=== PATIENT | female | born 1955 | race Caucasian/White ===

== ENCOUNTER 2017-06-08 13:56 | Inpatient (IN) ==
--- NOTE | 2017-06-08 14:11 | Emergency Department Note ---
Disposition Clinical Impression: GI bleed, Anemia Post-op bleeding Qualifiers: Surgical complication system/body Area: subcutaneous tissue Procedure type: non -dermatologic Qualified Code(s): L76.22 - Postprocedural hemorrhage of skin and subcutaneous tissue following other procedure Disposition: Admitted As Inpatient Condition: Fair Time of Disposition: 15:17 GI Bleed HPI - General Chief complaint: ED GI Bleed Stated complaint: 'bleeding from surgical site" Time Seen by Provider: 06/08/17 13:59 Source: patient, EMS Mode of arrival: EMS Limitations: no limitations Nursing Notes Reviewed: Yes Vital Signs Reviewed: Yes - History of Present Illness HPI Narrative: Patient is a 61-year-old female with past medical history of hypothyroidism, diabetes, high blood pressure, mechanical heart valve. She presents today due to rectal bleeding. She had surgery for hemorrhoids on May [address] Ortega. She says that she has had mild intermittent bleeding since the surgery but "nothing that worried her. "For the past 24 hours, after a bowel movement yesterday, she began having large amounts of bright red bleeding. She said that she was having to change a pad about every 15 minutes with the bleeding first started. The bleeding continued until today, and she was feeling lightheaded and dizzy and went to [facility]. While there , they gave her fluids and perform some basic blood work. They did not transfuse her. Currently, the patient denies any shortness of breath, lightheadedness, dizziness. She admits to some mild discomfort in the rectal region and does admit to continued rectal bleeding. She was on Lovenox shots to bridge her while she was restarted on Coumadin. She has been taking Coumadin 2.5 mg daily and was was to take her last Lovenox shot today, but she did not because of her symptoms. Her hemoglobin was 9.9 at outside facility, BMP not concerning, INR 2.4 at outside facility. - Related Data Home Medications Medication Instructions Recorded Confirmed Aspirin [Lo-Dose Aspirin EC] 81 mg PO DAILY 05/29/17 06/08/17 Atorvastatin Calcium [Lipitor] 20 mg PO DAILY 05/29/17 06/08/17 Calcium Carbonate [Calcium] 600 mg PO DAILY 05/29/17 06/08/17 HYDROcodone/Acet 7.5/325 mg [[place] 1 tab PO Q6H PRN 05/29/17 06/08/17 7.5-325 mg] Insulin DETEMIR [Levemir Flextouch] 32 unit SQ BID 05/29/17 06/08/17 Insulin LISPRO [Humalog Kwikpen 16 unit SQ TID 05/29/17 06/08/17 U-100] Levothyroxine [Synthroid] 50 mcg PO QAM 05/29/17 06/08/17 Metformin HCl [Glucophage] 1,000 mg PO BID 05/29/17 06/08/17 Oxygen 2 l IH HS 05/29/17 06/08/17 Paroxetine [Paxil] 30 mg PO DAILY 05/29/17 06/08/17 Sotalol [Betapace] 80 mg PO BID 05/29/17 06/08/17 Warfarin Sodium 2.5 mg PO MOTUWETHFRSA 05/29/17 06/08/17 Warfarin [Coumadin] 5 mg PO COLE 05/29/17 06/08/17 Metoprolol Tartrate [Lopressor] 50 mg PO BID 06/08/17 06/08/17 Multivitamin [Multi-Day Vitamins] 1 each PO DAILY 06/08/17 06/08/17 Previous Rx's Medication Instructions Recorded Docusate [Colace] 100 mg PO BID #30 capsule 05/29/17 Lidocaine Jelly 2% 1 appl MM Q6HR PRN #1 jel..ml. 05/29/17 OxyCODONE/APAP 5/325 [Percocet 1 each PO Q4HR PRN #40 tablet 05/29/17 5/325 MG] Allergies Allergy/AdvReac Type Severity Reaction Status Date / Time No Known Allergies Allergy Verified 05/29/17 11:42 All systems ED: reviewed and negative except as stated. Constitutional: Denies: fever Cardiovascular: Denies: chest pain Respiratory: Denies: dyspnea Gastrointestinal: Denies: abdominal pain, nausea, vomiting, diarrhea Neurological: Denies: headache, weakness, numbness, paresthesias Endocrine: Reports: fatigue Hematological/Lymphatic: Reports: easy bleeding Past Medical History - Past Medical History Attestation: Yes The following information was validated with the patient. Source: patient Medical history: Reports: diabetes, kidney stones, other Psychiatric history: Reports: no psych history - Social History Smoking Status: Never smoker Smokeless Tobacco Status: No Alcohol use: Reports: none Drug use: Reports: none Physical Exam - General Limitations: no limitations General appearance: in no apparent distress, other (Pale, overall generalized weakness) - Head Head exam: atraumatic, normocephalic, normal inspection - Eye Eye exam: Present: PERRL, EOMI, other (Pale conjunctiva) - ENT ENT exam: normal exam, normal oropharynx, mucous membranes moist - Neck Neck exam: Present: normal inspection, full ROM, trachea midline - Chest Chest inspection: Present: normal inspection, symmetric chest wall rise - Respiratory Respiratory exam: Present: normal lung sounds bilaterally - Cardiovascular Cardiovascular exam: Present: regular rate, normal rhythm, normal heart sounds - Abdominal Exam Abdominal exam: Present: soft, Non-Tender. Absent: tenderness, distention, guarding, rebound, rigidity - Rectal Exam Tobacco Conditioner present during exam: Yes Rectal exam: Present: hemorrhoids, other ([id number] amount of dried blood around the anus but no active bleeding at this time.) - Extremities Exam Extremities exam: Present: normal inspection, full ROM. Absent: pedal edema - Neurological Exam Neurological exam: Present: alert, oriented X3 - Psychiatric Psychiatric exam: Present: normal affect, normal mood - Skin Skin exam: Present: warm, dry, intact, normal color Course Course Narrative: Currently, vitals are stable. Blood pressure 107 over 70s. Her hemoglobin was 9.9 at outside facility, BMP not concerning, INR 2.4 at outside facility. Received FFP at outside facility and fluids. Physical exam shows Mild-to- moderate amount of dried blood around the anus but no active bleeding at this time. We will obtain repeat H&H, type and screen. Discussed possible blood transfusion with the patient and she was agreeable with it was necessary. After labs return, we will contact surgery for admission for further care. 15:14 repeat hemoglobin 7.0. This is down from 9.9 at outside facility. Patient was given FFP 1 at outside facility along with fluids. Blood pressure currently stable. Consent was signed for 2 units of packed RBC. Mary Corona with surgery assessed the patient at bedside, she contacted Dr. Johnson who is accepted the patient to his service. Patient will be admitted for further care. Per surgery, patient can have clear liquids. Vital Signs Temperature 99.2 F 06/08/17 14:00 Pulse Rate 89 06/08/17 14:00 Respiratory Rate 16 06/08/17 14:00 Blood Pressure 106/55 06/08/17 14:00 O2 Sat by Pulse Oximetry 98 06/08/17 14:00 Temperature 98.8 F 06/08/17 16:12 Pulse Rate 96 06/08/17 16:31 Respiratory Rate 16 06/08/17 16:31 Blood Pressure 119/58 06/08/17 16:31 O2 Sat by Pulse Oximetry 98 06/08/17 16:31 Oxygen Delivery Oxygen Delivery Room Air GI Bleed - [facility] Narrative Medical decision making narrative: repeat hemoglobin 7.0. This is down from 9.9 at outside facility. Patient was given FFP 1 at outside facility along with fluids. Blood pressure currently stable. Consent was signed for 2 units of packed RBC. Mary Corona with surgery assessed the patient at bedside, she contacted Dr. Johnson who is accepted the patient to his service. Patient will be admitted for further care. Per surgery, patient can have clear liquids. - Medical Records Medical records reviewed: Yes I reviewed the patient's medical records. - Lab Data Lab results reviewed: Yes I reviewed the patient's lab results. Result diagrams: 06/08/17 14:13 Lab Results 06/08/17 06/08/17 Range/Units 14:13 14:13 Hgb 7.0 L D (11.5-15.4) g/dL Hct 21.8 L (35.3-44.9) % Blood Type A POSITIVE Antibody Screen NEGATIVE Crossmatch See Detail S.B.A.Urban. - S.B.A.Abran Situation: Demographics, MOA Background: Presenting Complaint, Relevant PMH, Meds, & Allergies Assessment: Vital Signs, Course and respsone to treatment, Exam Concerns, Patient/Family Expectation, Pertinant Lab Results, Outstanding Labs Recommendation: Barrier(s) to disposition, Recommendation based on pending studies, treatments, or consults S.B.A.Abran Report Given to: Mary TiradoBJasonAMark Repor Time: 15:17 Attestation Statement - Attestation Attestation: I examined this patient and my medical decision-making was reviewed with the Resident Physician. I agree with the documented findings, disposition and treatment plan as described except to the extent set forth below. The patient's emergency department with a chief complaint of rectal bleeding. Patient status post hemorrhoid surgery on the . She has had intermittent bleeding since the surgery. Last night she states she started bleeding heavily. Was going to a feminine pad every 15 minutes. Went to [place] today and was transferred here at the request of her surgeon. Exam shows her pale but in no distress. Examination of her rectum reveals no active bleeding. Plan. Repeat H&H. Type and cross. Repeat hemoglobin 7. We will transfuse 2 units packed red cells. Admitted to surgery. 30 minutes of critical care exclusive of separately billable procedures.
[2017-06-08 14:20] LABS: Hematocrit 21.8 % (35.3-44.9)
[2017-06-08] MEDS ORDERED: Ondansetron 4 MG/2 ML VIAL IVP PRN (15:07)
--- NOTE | 2017-06-08 15:10 | General Surg History&Physical ---
<Mary Albarado - Last Filed: 06/08/17 15:10> Date of Encounter: 06/08/17 Time of Encounter: 14:30 Assessment and Plan (1) Post-operative hemorrhage Current Visit: Yes Status: Acute The assessment and plan as outlined above was discussed with the patient and/or family members who expressed understanding and agreement. All questions were answered. Admit to telemetry unit Monitor hgb/hct Transfuse 2 units PRBC now FFP given for INR-2.4 (Mechanical heart valve) Repeat INR at [address] Johnson will make a recommendation for heparin gtt Supportive care No urgent surgical intervention at this time Clear liquid diet Qualifiers: Surgical complication system/body Area: subcutaneous tissue Procedure type : non-dermatologic Qualified Code(s): L76.22 - Postprocedural hemorrhage of skin and subcutaneous tissue following other procedure (2) S/P hemorrhoidectomy Current Visit: Yes Status: Acute The assessment and plan as outlined above was discussed with the patient and/or family members who expressed understanding and agreement. All questions were answered. Intermittent bleeding noted Support with blood products- 2 units PRBC ordered (3) Acute blood loss anemia Current Visit: Yes Status: Acute The assessment and plan as outlined above was discussed with the patient and/or family members who expressed understanding and agreement. All questions were answered. Monitor Hgb/Hct Transfuse 2 units PRBC now Repeat CBC in the am (4) Mechanical heart valve present Current Visit: Yes Status: Acute The assessment and plan as outlined above was discussed with the patient and/or family members who expressed understanding and agreement. All questions were answered. INR- 2.4 FFP given at [facility] Repeat INR at 1800- Dr. Johnson to follow and make recommendations for heparin gtt (5) Diabetes mellitus Current Visit: Yes Status: Acute The assessment and plan as outlined above was discussed with the patient and/or family members who expressed understanding and agreement. All questions were answered. Clear liquid diet SSI every ACHS- medium sliding scale insulin Qualifiers: Diabetes mellitus type: type 2 Diabetes mellitus complication status: with unspecified complications Diabetes mellitus parts counterman insulin use: with parts counterman use Qualified Code(s): E11.8 - Type 2 diabetes mellitus with unspecified complications; Z79.4 - detention (current) use of insulin (6) Hypothyroidism Current Visit: Yes Status: Acute The assessment and plan as outlined above was discussed with the patient and/or family members who expressed understanding and agreement. All questions were answered. Continue synthroid Qualifiers: Hypothyroidism type: unspecified Qualified Code(s): E03.9 - Hypothyroidism , unspecified History of Present Illness Chief complaint: Rectal bleeding HPI: Ms. Babcock is a 61 year old female who was transferred from [facility] with complaints of rectal bleeding. She is s/p exam under anesthesia under anesthesia and hemorroidectomy with Dr. Ortega on 05/29/17. She reports that she has had intemittent rectal bleeding since her surgery. She did report to the ED on 06/04/17 and her Hgb was 10.4 at that time. She was discharged to home and instructed to follow-up with the surgery office. She states that her bleeding was slowly improving until last night. She reports passing a small, hard stool after dinner. She has been taking stool softners as needed and did take 2 yesterday. She states that after her bowel movement, she began to pass large amounts of bright red blood and clots from her bottom. She states that she changed her pad every 15-20 minutes through the night. When she got up this morning, she reports that she felt light headed and dizzy. She did not pass out but said that she felt that she could have. Her blood pressure was systolic of 93 at home. She reported to [facility] for further evaluation. Her hgb was noted to be 9.9 on initial presentation in the ED. Her SBP was 60-80's. She was given IV fluids and FFP and transferred to [place] for further management. She is currently on Coumadin therapy and a lovenox bridge for her mechanical heart valve. Her INR was 2.4 this morning. She was still taking lovenox injections but states that she was scheduled in the Coumadin clinic to likely stop the shots today. She states that she did pass a large bloody bowel movement just before being transferred to [place]. Her Hgb on arrival to [place] was found to be 7.0. We will admit the patient for furter work-up and management Denies any abdominal discomfort. She does admit to rectal discomfort which is related to her surgery. Denies any shortness of breath of chest pains. Denies any changes in appetite. Denies any difficulty with urination. Past Med Surg Social Fam HX - Past Medical History Source: patient, old records reviewed Medical history: atrial fibrillation, diabetes (Type 2), hyperlipidemia, hypertension, kidney stones, thyroid disease (hypothyroidism), other (diabetic neuropathy, aortic valve replacement) Psychiatric history: no psych history - Past Surgical History Surgical History: cholecystectomy, heart valve replacement (aortic valve- mechanical valve (2010)), other (tubal ligation, diagnostic laparoscopy, colonoscopy 2014, kidney stone removal, heart cath 2010) - Social History Smoking Status: Never smoker Smokeless Tobacco Status: No Alcohol use: none Drug use: none Current living situation: Home - Independent Activity Level: Independent ambulation - Family History Father Living Status: Cause of : Heart Disease Hx Family Cardiac Disorders: Yes (CHF) Mother Living Status: Cause of : Heart Disease Hx Family Cardiac Disorders: Yes (CHF) Medications and Allergies Aspirin [Lo-Dose Aspirin EC] 81 mg PO DAILY 05/29/17 [History] Atorvastatin Calcium [Lipitor] 20 mg PO DAILY 05/29/17 [History] Calcium Carbonate [Calcium] 600 mg PO DAILY 05/29/17 [History] Docusate [Colace] 100 mg PO BID #30 capsule 05/29/17 [Rx] HYDROcodone/Acet 7.5/325 mg [[place] 7.5-325 mg] 1 tab PO Q6H PRN 05/29/17 [ History] Insulin DETEMIR [Levemir Flextouch] 32 unit SQ BID 05/29/17 [History] Insulin LISPRO [Humalog Kwikpen U-100] 16 unit SQ TID 05/29/17 [History] Levothyroxine [Synthroid] 50 mcg PO QAM 05/29/17 [History] Lidocaine Jelly 2% 1 appl MM Q6HR PRN #1 jel..ml. 05/29/17 [Rx] Metformin HCl [Glucophage] 1,000 mg PO BID 05/29/17 [History] OxyCODONE/APAP 5/325 [Percocet 5/325 MG] 1 each PO Q4HR PRN #40 tablet 05/29/17 [Rx] Oxygen 2 l IH HS 05/29/17 [History] Paroxetine [Paxil] 30 mg PO DAILY 05/29/17 [History] Sotalol [Betapace] 80 mg PO BID 05/29/17 [History] Warfarin Sodium 2.5 mg PO MOTUWETHFRSA 05/29/17 [History] Warfarin [Coumadin] 5 mg PO COLE 05/29/17 [History] Metoprolol Tartrate [Lopressor] 50 mg PO BID 06/08/17 [History] Multivitamin [Multi-Day Vitamins] 1 each PO DAILY 06/08/17 [History] Allergies No Known Allergies Allergy (Verified 05/29/17 11:42) Review of Systems All systems PM: reviewed and no additional remarkable complaints except as stated (in the HPI) All systems PM: A 10-system review of systems was performed and is negative for pertinent findings except as documented above in the HPI. General Surgery Exam Initial Vital Signs Temp Pulse Resp BP Pulse Ox 99.2 F 89 16 106/55 98 06/08/17 14:00 06/08/17 14:00 06/08/17 14:00 06/08/17 14:00 06/08/17 14:00 - General physical appearance well developed, well nourished, no distress, no pain, other (pale and weak) - Eyes normal ocular movement, pale - ENT normal mucosa, atraumatic, normocephalic - Neck trachea midline - Respiratory normal respiratory effort, clear to auscultation - Cardiovascular Cardiovascular exam: Present: RRR - Abdomen Abdomen general surgery: Present: bowel sounds present, soft, non tender - Rectum Rectum: Present: other (Blood clot noted in depends, Perirectal wound is clean with no evidence of current/ongoing bleeding) - Integumentary Integumentary general surgery: Present: warm and dry - Neurologic Present: CN 2-12 grossly intact - Psychiatric Psychiatric general surgery: Present: appropriate, oriented to person, oriented to place, oriented to time, speech is normal, memory intact Results - Labs 06/08/17 14:13 Abnormal lab results Hgb 7.0 g/dL (11.5-15.4) L D 06/08/17 14:13 Hct 21.8 % (35.3-44.9) L 06/08/17 14:13 All other labs normal. <Meng Johnson - Last Filed: 06/08/17 16:46> Date of Encounter: 06/08/17 History of Present Illness HPI: Ms. Babcock is a 61 year old female Review of Systems All systems PM: A 10-system review of systems was performed and is negative for pertinent findings except as documented above in the HPI. General Surgery Exam Initial Vital Signs Temp Pulse Resp BP Pulse Ox 99.2 F 89 16 106/55 98 06/08/17 14:00 06/08/17 14:00 06/08/17 14:00 06/08/17 14:00 06/08/17 14:00 Results - Labs 06/08/17 14:13 Abnormal lab results Hgb 7.0 g/dL (11.5-15.4) L D 06/08/17 14:13 Hct 21.8 % (35.3-44.9) L 06/08/17 14:13 All other labs normal. - Attending Attestation I evaluated the patient in the presence of the PURE PAK MACHINE OPERATOR and reviewed the assessment and evaluation. Noted clot on the depends and small amount of oozing from the anal canal. Given her noted INR of 2.4 (she did have FFP transfusion at the outside hospital today) and the fact that her current HgB is 7.0 I do think it would be most appropriate to bring her to the OR for a rectal exam under anesthesia and possible oversew of the hemorrhoidial bleed. Discussed with the patient and family and they agree to the above plan.
[2017-06-08] MEDS ORDERED: 0.9 % Sodium Chloride 1,000 ML IVC SCH (15:15)
[2017-06-08] MEDS ORDERED: D5% in Water 1,000 ML IVC PRN (15:19)
[2017-06-08] MEDS ORDERED: Dextrose Gel 15 GM PO PRN ×2 (15:19)
[2017-06-08] MEDS ORDERED: *HR* Dextrose 50 % in Water (Syg) 50 ML SYRINGE IVP PRN (15:19)
[2017-06-08] MEDS ORDERED: 0.9 % Sodium Chloride 250 ML ONE (15:49)
--- NOTE | 2017-06-08 16:28 | Anesthesia Evaluation PreOp ---
Date of Encounter: 06/08/17 Time of Encounter: 16:26 - Past History Planned Operation: Rectal EUA Cardiac History: Hyperlipidemia, Arrhythmia (H/O A-Fib), Cardiac Surgery ( mechanical AVR in 2010) Pulmonary History: KRIS Dx (on O2 2 L/NC qhs) REFRIGERATOR REPAIR TECHNICIAN History: Denies Any Significant HX Other Medical History: Diabetes Type II, Thyroid Anesthesia History: No Prior Anesthetic Complications, Past Anesthesia Alcohol Use: none Drug use: none Medications and Allergies Aspirin [Lo-Dose Aspirin EC] 81 mg PO DAILY 05/29/17 [History] Atorvastatin Calcium [Lipitor] 20 mg PO DAILY 05/29/17 [History] Calcium Carbonate [Calcium] 600 mg PO DAILY 05/29/17 [History] Docusate [Colace] 100 mg PO BID #30 capsule 05/29/17 [Rx] HYDROcodone/Acet 7.5/325 mg [[place] 7.5-325 mg] 1 tab PO Q6H PRN 05/29/17 [ History] Insulin DETEMIR [Levemir Flextouch] 32 unit SQ BID 05/29/17 [History] Insulin LISPRO [Humalog Kwikpen U-100] 16 unit SQ TID 05/29/17 [History] Levothyroxine [Synthroid] 50 mcg PO QAM 05/29/17 [History] Lidocaine Jelly 2% 1 appl MM Q6HR PRN #1 jel..ml. 05/29/17 [Rx] Metformin HCl [Glucophage] 1,000 mg PO BID 05/29/17 [History] OxyCODONE/APAP 5/325 [Percocet 5/325 MG] 1 each PO Q4HR PRN #40 tablet 05/29/17 [Rx] Oxygen 2 l IH HS 05/29/17 [History] Paroxetine [Paxil] 30 mg PO DAILY 05/29/17 [History] Sotalol [Betapace] 80 mg PO BID 05/29/17 [History] Warfarin Sodium 2.5 mg PO MOTUWETHFRSA 05/29/17 [History] Warfarin [Coumadin] 5 mg PO COLE 05/29/17 [History] Metoprolol Tartrate [Lopressor] 50 mg PO BID 06/08/17 [History] Multivitamin [Multi-Day Vitamins] 1 each PO DAILY 06/08/17 [History] Allergies No Known Allergies Allergy (Verified 05/29/17 11:42) - Meds/Allergy Pre-op Review Medications Reviewed: Yes Allergies Reviewed: Yes Beta Blockers on Current Med List: Yes If Beta Blockers taken, Date/Time (Last Dose taken): 06/07/2017 at 2000 Anesthesia Results - Labs 06/08/17 14:13 Anesthesia Exam Vital Signs/O2 Sat/Glucose, Most Recent Temp Pulse Resp BP Pulse Ox 98.2 F 95 16 120/60 98 06/08/17 16:07 06/08/17 16:07 06/08/17 16:07 06/08/17 16:07 06/08/17 14:00 Blood Glucose* 182 Height: 5'4'' Weight: 162 lbs NPO (# of Hours): 8 Pain Scale: 0 Pain Scale Used: Numeric (1 - 10) - HEENT Pupil (Motor): EOMI Mallampati: III Teeth: Normal Oral Opening: Greater than 3 - REFRIGERATOR REPAIR TECHNICIAN LOC: Oriented REFRIGERATOR REPAIR TECHNICIAN Motor: Normal RUE, Normal LUE, Normal RLE, Normal LLE, Normal Face REFRIGERATOR REPAIR TECHNICIAN Sensory: Normal: RUE, LUE, Face, Deficit: RLE, LLE - Cardiac Rhythm: Regular Murmur: None - Pulmonary Breath Sounds: bilateral Clear Respiratory Effort: Symmetrical Anesthesia Assess/Plan ASA Score: 3 Modified Mcallister Scale for Level of Consciousness: Cooperative, oriented, and tranquil Anesthetic Plan: General Monitoring Plan: Standard Monitors Recovery Plan: PACU
[2017-06-08] MEDS ORDERED: Insulin LISPRO 300 UNITS/3 ML VIAL SQ SCH ×2 (16:30→21:00)
[2017-06-08] MEDS ORDERED: *HR* FentaNYL (PF) 100 MCG/2 ML VIAL ONE (16:38)
[2017-06-08] MEDS ORDERED: *HR* Propofol 200 MG/20 ML VIAL IVP ONE (16:38)
[2017-06-08] MEDS ORDERED: Lidocaine -MPF 2% 2 ML VIAL ONE (16:39)
[2017-06-08] MEDS ORDERED: Lidocaine Jelly 2% 30 ML JEL..ML. ONE (16:44)
[2017-06-08] MEDS ORDERED: Lidocaine/EPI 1:200k 1% PF 10 ML VIAL ONE (16:44)
[2017-06-08] MEDS ORDERED: CefOXitin 2,000 MG VIAL IVPB ONE (17:12)
--- NOTE | 2017-06-08 18:02 | Operative Note ---
Date of procedure: 06/08/17 Pre-op diagnosis: Rectal bleeding s/p hemorrhoidectomy Post-op diagnosis: same Procedure: 1. Rectal exam under anesthesia. 2. Ligation of hemorrhoidal bleed. Anesthesia: GETA Surgeon: Meng Johnson Estimated blood loss (cc): 10 Condition: stable Disposition: PACU Procedure in Detail: Date of surgery: 06/08/17 After properly identifying the patient, the patient was brought to the operating room and placed in the supine position. After proper IV sedation was achieved followed by general endotracheal intubation, the patient was placed in the jackknife prone position and the perianal tissue was prepped and draped in normal fashion. A timeout was performed noting the patient's name and type of procedure to be performed. 1% lidocaine with epinephrine was used to perform a pudendal block. The perianal tissue was also infiltrated 1% lidocaine in a kwabena fashion. Examination demonstrated 2 areas previous hemorrhoidectomy; one at the 9 o'clock position and the other at the 3 to 4 o'clock position of the anus. Rectal retractors in place within the anal canal which demonstrated evidence of a clot within the rectum which was expelled. There was some mild oozing noted at the 9:00 hemorrhoidal site which appeared to have dehisced. Some slight oozing which was hemostatically controlled with Bovie cauterization. This area was then oversewed with a interrupted 3-0 Monocryl suture. Visualization also showed an area of oozing at the 3 to 4 o'clock position of the previous hemorrhoidectomy site which is also mildly dehisced. This oozing was significantly less however this was also hemostatically controlled with Bovie cauterization. This was additionally oversewed with a interrupted 3-0 Monocryl suture. Reinspection for 5-10 minutes was performed which demonstrated no evidence of active bleeding within the anal canal or rectum. Gelfoam impregnated with 2% lidocaine jelly was placed within the anal canal and an ABD was then placed over the opening. Needle, sponge, and instrument counts were correct 2 and the patient was placed in a supine position on the stretcher. The patient was aroused from IV sedation, extubated in the operating room without complication, and transported to the recovery room stable condition.
[2017-06-08] MEDS ORDERED: 0.9 % Sodium Chloride 500 ML ONE (18:31)
[2017-06-08] MEDS ORDERED: Ringers Solution, Lactated 1,000 ML ONE (18:41)
[2017-06-08 18:48] LABS: INR 2.3
--- NOTE | 2017-06-08 19:12 | Anesthesia Evaluation Post Op ---
Date of Encounter: 06/08/17 Time of Encounter: 19:10 - Vital Signs Vital Signs: Vital Signs/O2 Sat/Glucose, Most Current Temp Pulse Resp BP Pulse Ox 06/08/17 19:02 97.8 F 88 16 103/60 100 06/08/17 18:52 89 16 108/55 100 06/08/17 18:42 90 24 98/57 98 06/08/17 18:39 98.0 F 90 16 99/54 100 06/08/17 18:32 98.0 F 92 16 99/54 99 06/08/17 18:22 92 16 105/56 100 06/08/17 18:12 80 16 83/44 97 06/08/17 18:02 99.2 F 78 16 79/40 95 06/08/17 16:51 16 119/58 06/08/17 16:31 96 16 119/58 98 06/08/17 16:12 98.8 F 95 16 119/58 06/08/17 16:07 98.2 F 95 16 120/60 06/08/17 16:00 98.2 F 96 16 91/46 06/08/17 15:54 98.7 F 95 14 109/58 - Lungs Lungs: Clear Ascult./Percussion - Airway Airway: Non-obstructed - Cardiovascular Regular Rate - Mental Status Mental Status: Alert & Oriented, Answers Appropriately - Pain Pain Scale: 1 - Nausea Vomiting Nausea Vomiting: Not Present - Hydration Hydration: Ice chips - Discharge PostOp Status: Transfer Patient to floor
[2017-06-08] MEDS ORDERED: *HR* Morphine 2 MG/ML SYRINGE IVP ONE (23:51)
[2017-06-09 05:09] LABS: Basophils % 0.1 %; Eosinophils # 0.1 K/mcL (0.0-0.6); Eosinophils % 0.7 %; Hematocrit 22.2 % (35.3-44.9); Hemoglobin 7.6 g/dL (11.5-15.4); Immature Granulocytes % 0.4 % (0-4); Lymphocytes # 2.9 K/mcL (0.6-4.6); Lymphocytes % 41.6 %; Mean Corpuscular HGB Conc 34.2 g/dL (31.6-35.5); Mean Corpuscular Hemoglobin 30.4 pg (28.0-33.3); Mean Corpuscular Volume 88.8 fL (83.0-100.0); Mean Platelet Volume 12.6 fL (9.4-12.4); Monocytes # 0.6 K/mcL (0.0-1.3); Monocytes % 8.9 %; Neutrophils # 3.4 K/mcL (1.6-8.9); Platelet Count 103 K/mcL (140-400); Red Cell Distribution Width 16.4 % (11.5-14.5); Segmented Neutrophils % 48.3 %
[2017-06-09 05:14] LABS: INR 2.2; Prothrombin Time 24.7 Seconds (9.4-12.1)
[2017-06-09 05:16] LABS: Activated Partial Thrombo Time 28.3 Seconds (26.0-36.0)
[2017-06-09 05:24] LABS: BUN/Creatinine Ratio 21 (6-26); Blood Urea Nitrogen 15 mg/dL (7-20); Calcium 7.7 mg/dL (8.6-10.8); Carbon Dioxide 25 mEq/L (19-29); Chloride 109 mEq/L (98-109); Glucose 181 mg/dL (70-99); Osmolality,Calculated 297 (280-300); Potassium 3.9 mEq/L (3.5-4.5); Sodium 141 mEq/L (136-145); eGFR For African Americans > 60 (> 60); eGFR For Non-African Americans > 60 (> 60)
[2017-06-09] MEDS ORDERED: D5% in Water 1,000 ML IVC PRN (06:42)
[2017-06-09] MEDS ORDERED: Ondansetron 4 MG/2 ML VIAL IVP PRN (06:42)
[2017-06-09] MEDS ORDERED: 0.9 % Sodium Chloride 1,000 ML IVC SCH (06:42)
[2017-06-09] MEDS ORDERED: *HR* Dextrose 50 % in Water (Syg) 50 ML SYRINGE IVP PRN (06:42)
[2017-06-09] MEDS ORDERED: *HR* Morphine 2 MG/ML SYRINGE IVP PRN (06:42)
[2017-06-09] MEDS ORDERED: Dextrose Gel 15 GM PO PRN ×2 (06:42)
[2017-06-09 07:39] LABS: INR 2.2; Prothrombin Time 24.2 Seconds (9.4-12.1)
--- NOTE | 2017-06-09 09:10 | General Surgery Progress Note ---
Date of Encounter: 06/10/17 Time of Encounter: 09:08 - Assessment and Plan (1) Post-operative hemorrhage Current Visit: Yes Status: Acute Will continue to monitor H/H. Follow BMs. Keep on clears today. Will heplock IVF. Additionally, Hgb is 7.6 and will transfuse an additional 2U PRBC. Qualifiers: Surgical complication system/body Area: subcutaneous tissue Procedure type : non-dermatologic Qualified Code(s): L76.22 - Postprocedural hemorrhage of skin and subcutaneous tissue following other procedure (2) Mechanical heart valve present Current Visit: Yes Status: Acute INR 2.2. Will hold on lovenox this morning and restart coumadin this evening ( patient takes coumadin 2.5mg daily except for Sunday, which is 5mg). (3) Diabetes mellitus Current Visit: Yes Status: Acute On sliding scale. Continue to monitor. Qualifiers: Diabetes mellitus type: type 2 Diabetes mellitus complication status: with unspecified complications Diabetes mellitus jail insulin use: with jail use Qualified Code(s): E11.8 - Type 2 diabetes mellitus with unspecified complications; Z79.4 - retirement (current) use of insulin Subjective Patient reports: other (Noted BMs since the procedure last night. Report dark blood clot/BM this am. Patient denies the feeling/pressure of needing to have BMs compared to her presentation in the ER last night.) Objective Vital Signs - Last 8 Hours Temp Pulse Resp BP Pulse Ox 06/09/17 08:04 98.2 F 80 17 128/85 96 06/09/17 05:31 98.7 F 80 18 102/63 95 Intake and Output 06/08/17 06/09/17 06/09/17 23:59 07:59 15:59 Intake Total 600 / 600 Output Total Balance 580 / 580 Intake: Blood Product 600 / 600 Rbcs Leuko Poor As-1 300 / 300 Unit [id number] Rbcs Leuko Poor As-3 Ph 300 / 300 Unit [id number] Output: Estimated Blood Loss Other: Stool Size Moderate Moderate Stool Consistency soft soft Stool Color Dark Red Blood Dark Red Blood # Voids 1 # Bowel Movements 2 1 Weight 76.7 kg 76.9 kg Blood Glucose* 200 237 Patient Weight 06/09/17 23:59 Weight 76.9 kg - General physical appearance well nourished, no distress, other (Less paleness noted.) - Additional Exam Perianal exam shows stool around the orifice. No active oozing noted. Noted redish appearing stool around orifice. - Labs 06/10/17 03:40 06/10/17 03:40 Diabetes panel 06/09/17 Range/Units 04:50 Sodium 141 (136-145) mEq/L Potassium 3.9 (3.5-4.5) mEq/L Chloride 109 (98-109) mEq/L Carbon Dioxide 25 (19-29) mEq/L BUN 15 (7-20) mg/dL Creatinine 0.72 (0.57-1.11) mg/dL Glucose 181 H (70-99) mg/dL Calcium 7.7 L (8.6-10.8) mg/dL Calcium panel 06/09/17 Range/Units 04:50 Calcium 7.7 L (8.6-10.8) mg/dL Pituitary panel 06/09/17 Range/Units 04:50 Sodium 141 (136-145) mEq/L Potassium 3.9 (3.5-4.5) mEq/L Chloride 109 (98-109) mEq/L Carbon Dioxide 25 (19-29) mEq/L BUN 15 (7-20) mg/dL Creatinine 0.72 (0.57-1.11) mg/dL Glucose 181 H (70-99) mg/dL Calcium 7.7 L (8.6-10.8) mg/dL Adrenal panel 06/09/17 Range/Units 04:50 Sodium 141 (136-145) mEq/L Potassium 3.9 (3.5-4.5) mEq/L Chloride 109 (98-109) mEq/L Carbon Dioxide 25 (19-29) mEq/L BUN 15 (7-20) mg/dL Creatinine 0.72 (0.57-1.11) mg/dL Glucose 181 H (70-99) mg/dL Calcium 7.7 L (8.6-10.8) mg/dL - VTE Reasons for not Prescribing Prophylaxis: Not indicated-Anticoagulated or INR therapeutic Consult Discharge Plan - Plan Referrals: NO,PCP [Primary Care Provider] -
[2017-06-09] MEDS ORDERED: *HR* Warfarin 2.5 MG TABLET PO ONE ×2 (09:13→18:00)
[2017-06-09] MEDS: Insulin LISPRO 300 UNITS/3 ML VIAL SQ SCH ×3 (10:39→17:57)
[2017-06-09] MEDS ORDERED: 0.9 % Sodium Chloride 500 ML ONE ×2 (11:29→17:32)
[2017-06-09] MEDS: *HR* OxyCODONE/APAP 10/325 TABLET PO PRN ×2 (11:46→18:01)
[2017-06-09] MEDS ORDERED: Insulin LISPRO 300 UNITS/3 ML VIAL SQ SCH (21:00)
[2017-06-10 04:23] LABS: Basophils % 0.6 %; Eosinophils # 0.1 K/mcL (0.0-0.6); Eosinophils % 1.5 %; Hematocrit 28.2 % (35.3-44.9); Hemoglobin 9.4 g/dL (11.5-15.4); Immature Granulocytes % 0.6 % (0-4); Lymphocytes # 2.8 K/mcL (0.6-4.6); Lymphocytes % 41.3 %; Mean Corpuscular HGB Conc 33.3 g/dL (31.6-35.5); Mean Corpuscular Hemoglobin 29.5 pg (28.0-33.3); Mean Corpuscular Volume 88.4 fL (83.0-100.0); Mean Platelet Volume 12.4 fL (9.4-12.4); Monocytes # 0.6 K/mcL (0.0-1.3); Monocytes % 8.5 %; Neutrophils # 3.2 K/mcL (1.6-8.9); Platelet Count 105 K/mcL (140-400); Red Blood Count 3.19 M/mcL (3.82-4.97); Red Cell Distribution Width 15.9 % (11.5-14.5); Segmented Neutrophils % 47.5 %
[2017-06-10 04:26] LABS: Prothrombin Time 21.7 Seconds (9.4-12.1)
[2017-06-10 04:29] LABS: Activated Partial Thrombo Time 27.6 Seconds (26.0-36.0)
[2017-06-10 04:40] LABS: BUN/Creatinine Ratio 14 (6-26); Blood Urea Nitrogen 9 mg/dL (7-20); Calcium 7.6 mg/dL (8.6-10.8); Carbon Dioxide 26 mEq/L (19-29); Chloride 110 mEq/L (98-109); Glucose 166 mg/dL (70-99); Osmolality,Calculated 294 (280-300); Potassium 3.4 mEq/L (3.5-4.5); Sodium 141 mEq/L (136-145); eGFR For African Americans > 60 (> 60); eGFR For Non-African Americans > 60 (> 60)
[2017-06-10] MEDS: Insulin LISPRO 300 UNITS/3 ML VIAL SQ SCH ×2 (07:49→12:31)
[2017-06-10] MEDS ORDERED: *HR* Enoxaparin 40 MG/0.4 ML SYRINGE SQ ONE (08:03)
--- NOTE | 2017-06-10 09:32 | Discharge Summary ---
<Jeremiah Davidson - Last Filed: 06/10/17 11:27> Date of Encounter: 06/10/17 Time of Encounter: 09:30 - Discharge Diagnosis (1) Post-operative hemorrhage Priority: Primary Status: Resolved Comments: Patient tolerated her regular diet for breakfast. Hgb up to 9.4 from 7.6. Qualifiers: Surgical complication system/body Area: subcutaneous tissue Procedure type : non-dermatologic Qualified Code(s): L76.22 - Postprocedural hemorrhage of skin and subcutaneous tissue following other procedure (2) Mechanical heart valve present Priority: Primary Status: Chronic Comments: INR 2.0 today. Resume Coumadin last night with skipping her dose yesterday. Discussed plan with patient to continue taking her Lovenox injections as well as resuming her home dose of Coumadin. She will call her Coumadin clinic tomorrow to set up an appointment on Sunday to reevaluate INR and if she needs to still be on Lovenox. (3) Diabetes mellitus Priority: Secondary Status: Acute Qualifiers: Diabetes mellitus type: type 2 Diabetes mellitus complication status: with unspecified complications Diabetes mellitus long term care social worker insulin use: with long term care social worker use Qualified Code(s): E11.8 - Type 2 diabetes mellitus with unspecified complications; Z79.4 - penitentiary (current) use of insulin - Discharge Medications Prescriptions: OxyCODONE/APAP 10/325 [Percocet 10/325 MG] 1 each PO Q6HR PRN #26 tab PRN Reason: Moderate Pain Home Medications: Aspirin [Lo-Dose Aspirin EC] 81 mg PO DAILY 05/29/17 [History] Atorvastatin Calcium [Lipitor] 20 mg PO DAILY 05/29/17 [History] Calcium Carbonate [Calcium] 600 mg PO DAILY 05/29/17 [History] Docusate [Colace] 100 mg PO BID #30 capsule 05/29/17 [Rx] Insulin DETEMIR [Levemir Flextouch] 32 unit SQ BID 05/29/17 [History] Insulin LISPRO [Humalog Kwikpen U-100] 16 unit SQ TID 05/29/17 [History] Levothyroxine [Synthroid] 50 mcg PO QAM 05/29/17 [History] Lidocaine Jelly 2% 1 appl MM Q6HR PRN #1 jel..ml. 05/29/17 [Rx] Metformin HCl [Glucophage] 1,000 mg PO BID 05/29/17 [History] Oxygen 2 l IH HS 05/29/17 [History] Paroxetine [Paxil] 30 mg PO DAILY 05/29/17 [History] Sotalol [Betapace] 80 mg PO BID 05/29/17 [History] Warfarin Sodium 2.5 mg PO [id number] 05/29/17 [History] Warfarin [Coumadin] 5 mg PO COLE 05/29/17 [History] Metoprolol Tartrate [Lopressor] 50 mg PO BID 06/08/17 [History] Multivitamin [Multi-Day Vitamins] 1 each PO DAILY 06/08/17 [History] OxyCODONE/APAP 10/325 [Percocet 10/325 MG] 1 each PO Q6HR PRN #26 tab 06/10/17 [ Rx] Allergies/Adverse Reactions: Allergies No Known Allergies Allergy (Verified 05/29/17 11:42) General Surgery Exam Initial Vital Signs Temp Pulse Resp BP Pulse Ox 99.2 F 89 16 106/55 98 06/08/17 14:00 06/08/17 14:00 06/08/17 14:00 06/08/17 14:00 06/08/17 14:00 - General physical appearance well developed, well nourished, no distress - Eyes normal ocular movement - ENT atraumatic, normocephalic - Neck trachea midline - Respiratory normal expansion, normal respiratory effort, clear to auscultation - Cardiovascular Cardiovascular exam: Present: RRR - Abdomen Abdomen general surgery: Present: bowel sounds present, soft, non tender - Rectum Rectum: Present: no bleeding - Integumentary Integumentary general surgery: Present: warm and dry - Psychiatric Psychiatric general surgery: Present: appropriate, oriented to person, oriented to place, oriented to time, speech is normal, memory intact Date of admission: 06/08/17 15:11 Primary care physician: PCP NO Discharging clinician: Meng Johnson Anticipated date of discharge: 06/10/17 - Patient Status Disposition: Home, Self-Care Condition: Fair Overall status at discharge: patient is back to baseline - Discharge Instructions Instructions: Oxycodone/Acetaminophen (By mouth), Rectal Bleeding (DC) Follow Up With: Fernanda Ortega MD [Partnered Physician] - (we have sent a web request if you have not heard for the office please contact them by next ) NO,PCP [Primary Care Provider] - Additional Instructions: Take all medications as prescribed. Prescribed Percocet 10/325 every 6 hours as needed for pain #26 tablets Keep a list of her home medications with you at all times Do not move quickly or lift anything heavy until you are feeling better. You may take showers and baths as usual. Pat your anal area dry when you are done. Avoid sitting on the toilet for long periods of time or straining during bowel movements Support your feet with a small step stool when you sit on the toilet. This can make bowel movements easier after surgery Follow-up with Dr. Ortega in 1-2 weeks. The surgical office will call you. Continue taking her Coumadin and Lovenox. Call tomorrow morning to make an appointment with your Coumadin clinic on Sunday to reevaluate Lovenox usage and INR. Return to the emergency room or call the clinic if you have bleeding from her anus that soaks 2 or more large gauze pads, pain that is not getting any better after taking medication or have any signs of infection such as increased pain, swelling, warmth, redness, fever or pus draining. - Diet and Activity Activity: resume usual activities as tolerated Diet: advance to your usual diet - Hospital Course Hospital course: Ms. Babcock is a very pleasant 61 year old female with a past medical history of atrial fibrillation, DM2, hyperlipidmeia, HTN, hypothyroidism, diabetic neuropathy and aortic valve replacement who was transferred from [facility] with a chief complaint of rectal bleeding. Patient had undergone an hemorrhoidectomy by Dr. Ortega on 05/29/2017 and subsequently has had intermittent rectal bleeding since her surgery. Patient did experience large amounts of bright red blood and clots from her bottom prior to arrival. When the patient reported to [facility], her hemoglobin was 9.9 and her systolic blood pressures were in the 60-80 range. She had been given IV fluids and FFP since she was on Coumadin therapy and Lovenox bridge for her mechanical heart valve. INR was 2.4 and her hemoglobin was 7.0 when she arrived to [place]. Patient was seen and evaluated and started on 2 units of packed red blood cells. She was subsequently admitted to a telemetry unit and proceeded with surgical intervention with ligation of her hemorrhoid by Dr. Johnson. Her Coumadin was held that night prior to surgery and her Hgb was 7.6 the following morning. Nursing stated that she continued to have large amounts of blood and clots in her stool and again she was transfused 2 units of packed red blood cells. Her Coumadin regimen was restarted at bedtime POD#1. The following morning with recheck showed a hemoglobin of 9.4 along with an INR of 2.0. Diet was advanced with toleration and pain was controlled. Patient was discharged home in stable condition on 06/10/2017 with a follow-up in 1-[address] Ortega as well as immediate follow-up with her Coumadin clinic. - Time Spent with Patient Total time spent providing and/or coordinating discharge services: Labs on day of discharge: Labs from last 24 hours 06/10/17 06/10/17 06/10/17 03:40 03:40 03:40 WBC 6.7 RBC 3.19 L Hgb 9.4 L D Hct 28.2 L MCV 88.4 MCH 29.5 MCHC 33.3 RDW 15.9 H Plt Count 105 L MPV 12.4 Immature Gran % 0.6 Seg Neutrophils % 47.5 Lymphocytes % 41.3 Monocytes % 8.5 Eosinophils % 1.5 Basophils % 0.6 Neutrophils # 3.2 Lymphocytes # 2.8 Monocytes # 0.6 Eosinophils # 0.1 Basophils # 0.0 PT 21.7 H INR 2.0 APTT 27.6 Sodium 141 Potassium 3.4 L Chloride 110 H Carbon Dioxide 26 BUN 9 Creatinine 0.63 Est GFR ( Amer) > 60 Est GFR (Non-Af Amer) > 60 BUN/Creatinine Ratio 14 Glucose 166 H POC Glucose Calculated Osmolality 294 Calcium 7.6 L 06/09/17 06/09/17 06/09/17 20:46 16:13 11:24 WBC RBC Hgb Hct MCV MCH MCHC RDW Plt Count MPV Immature Gran % Seg Neutrophils % Lymphocytes % Monocytes % Eosinophils % Basophils % Neutrophils # Lymphocytes # Monocytes # Eosinophils # Basophils # PT INR APTT Sodium Potassium Chloride Carbon Dioxide BUN Creatinine Est GFR ( Amer) Est GFR (Non-Af Amer) BUN/Creatinine Ratio Glucose POC Glucose 176 H 135 H 243 H Calculated Osmolality Calcium 06/09/17 06/08/17 08:06 19:43 WBC RBC Hgb Hct MCV MCH MCHC RDW Plt Count MPV Immature Gran % Seg Neutrophils % Lymphocytes % Monocytes % Eosinophils % Basophils % Neutrophils # Lymphocytes # Monocytes # Eosinophils # Basophils # PT INR APTT Sodium Potassium Chloride Carbon Dioxide BUN Creatinine Est GFR ( Amer) Est GFR (Non-Af Amer) BUN/Creatinine Ratio Glucose POC Glucose 237 H 200 H Calculated Osmolality Calcium <Meng Johnson - Last Filed: 06/10/17 15:53> Date of Encounter: 06/10/17 - Discharge Diagnosis (1) Post-operative hemorrhage Status: Resolved Qualifiers: Surgical complication system/body Area: subcutaneous tissue Procedure type : non-dermatologic Qualified Code(s): L76.22 - Postprocedural hemorrhage of skin and subcutaneous tissue following other procedure (2) Mechanical heart valve present Status: Chronic (3) Diabetes mellitus Status: Acute Qualifiers: Diabetes mellitus type: type 2 Diabetes mellitus complication status: with unspecified complications Diabetes mellitus skilled nursing insulin use: with long term care social worker use Qualified Code(s): E11.8 - Type 2 diabetes mellitus with unspecified complications; 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 Babcock is a 61 year old female - Time Spent with Patient Total time spent providing and/or coordinating discharge services: Labs on day of discharge: Labs from last 24 hours 06/10/17 06/10/17 06/10/17 03:40 03:40 03:40 WBC 6.7 RBC 3.19 L Hgb 9.4 L D Hct 28.2 L MCV 88.4 MCH 29.5 MCHC 33.3 RDW 15.9 H Plt Count 105 L MPV 12.4 Immature Gran % 0.6 Seg Neutrophils % 47.5 Lymphocytes % 41.3 Monocytes % 8.5 Eosinophils % 1.5 Basophils % 0.6 Neutrophils # 3.2 Lymphocytes # 2.8 Monocytes # 0.6 Eosinophils # 0.1 Basophils # 0.0 PT 21.7 H INR 2.0 APTT 27.6 Sodium 141 Potassium 3.4 L Chloride 110 H Carbon Dioxide 26 BUN 9 Creatinine 0.63 Est GFR ( Amer) > 60 Est GFR (Non-Af Amer) > 60 BUN/Creatinine Ratio 14 Glucose 166 H POC Glucose Calculated Osmolality 294 Calcium 7.6 L 06/09/17 06/09/17 06/09/17 20:46 16:13 11:24 WBC RBC Hgb Hct MCV MCH MCHC RDW Plt Count MPV Immature Gran % Seg Neutrophils % Lymphocytes % Monocytes % Eosinophils % Basophils % Neutrophils # Lymphocytes # Monocytes # Eosinophils # Basophils # PT INR APTT Sodium Potassium Chloride Carbon Dioxide BUN Creatinine Est GFR ( Amer) Est GFR (Non-Af Amer) BUN/Creatinine Ratio Glucose POC Glucose 176 H 135 H 243 H Calculated Osmolality Calcium 06/08/17 19:43 WBC RBC Hgb Hct MCV MCH MCHC RDW Plt Count MPV Immature Gran % Seg Neutrophils % Lymphocytes % Monocytes % Eosinophils % Basophils % Neutrophils # Lymphocytes # Monocytes # Eosinophils # Basophils # PT INR APTT Sodium Potassium Chloride Carbon Dioxide BUN Creatinine Est GFR ( Amer) Est GFR (Non-Af Amer) BUN/Creatinine Ratio Glucose POC Glucose 200 H Calculated Osmolality Calcium - Attending Attestation I examined this patient and my medical decision-making was reviewed with the Resident Physician. I agree with the documented findings, disposition and treatment plan as described except to the extent set forth below. I reviewed the above assessment and plan with the medical student and agree with the above. Instructed the patient to continue taking her warfarin and lovenox injections, and contact the Coumadin Clinic so she can be evaluated on to determine if it is appropriate to stop her lovenox. Will ensure she has a follow up appointment with Dr. Ortega in 1-2 weeks.
[2017-06-10 11:33] VITALS: BP 128/65
[2017-06-10] MEDS: *HR* OxyCODONE/APAP 10/325 TABLET PO PRN (14:31)
--- NOTE | 2017-06-11 13:06 | Electrocardiograph Report ---
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
--- NOTE | 2017-06-11 13:19 | Electrocardiograph Report ---
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
== END 2017-06-10 13:30 | disposition home or self-care (01) | DRG 908 ==
LOC: EMEROO 13:56 → 2NENU 15:11
PROVIDERS: ADMIT Surgery; ATTEND Surgery